=== PATIENT | female | born 1950 | race Caucasian/White ===

== ENCOUNTER 2017-01-17 08:15 | Emergency (ER) | payer MEDICARE ==
[~2017-01-17] VITALS: Ht 165.1 cm; Wt 81.6 kg
[~2017-01-17 08:15] MED LIST: AMLODIPINE-VALS1 TA1 PO; AUGMENTIN1 TA2 OR; CEFTIN500 MG PO; EXFORGE 5 MG-161 TAB PO; FENOFIBRATE160 MG PO; LEVOTHYROXINE0.1 M1 PO; MAXZIDE 25 MG-31 TA1 PO; NAPROXEN EC500 MG PO; POTASSIUM CHLO10 ME1 PO; Zithromax500 MG PO
--- OUTSIDE RECORDS SUMMARY | 2017-01-17 08:50 | External Medical Summary Rpt | CCD ---
Author Author [employer] Organization [employer] Address Unknown Phone Unavailable Purpose Continuity of Care Document - through 2016
--- OUTSIDE RECORDS SUMMARY | 2017-01-17 08:50 | External Medical Summary Rpt | CCD ---
Author Author , AMANDA PATEL Address Unknown Phone [email or web address] Immunization Name Date Rout CVX Reac Dose Comm Prov Is Faci e tion ent ider Refu lity Give sed n Tdap 05-1 115 999 Hist H149 No H149 , 1-20 oric Adso 07 al rbed Info rmat ion - Sour ce Unsp ecif ied Hep 12-0 43 999 Hist H149 No H149 B, 5-19 oric adul 97 al t Info rmat ion - Sour ce Unsp ecif ied Hep 07-0 42 999 Hist H149 No H149 B, 1-19 oric adol 97 al Info High rmat Ris ion - Sour ce Unsp ecif ied Hep 06-0 43 999 Hist H149 No H149 B, 2-19 oric adul 97 al t Info rmat ion - Sour ce Unsp ecif ied
--- OUTSIDE RECORDS SUMMARY | 2017-01-17 08:50 | External Medical Summary Rpt ---
Author Author AMANDA Raygoza, [employer] Organization [employer] Address Unknown Phone Unavailable
--- OUTSIDE RECORDS SUMMARY | 2017-01-17 08:50 | External Medical Summary Rpt | CCD ---
Author Author AMANDA Address Unknown Phone [email or web address] Purpose Continuity of Care Document - through 2016
--- OUTSIDE RECORDS SUMMARY | 2017-01-17 08:50 | External Medical Summary Rpt | CCD ---
Author Author , AMANDA PATEL Address Unknown Phone [email or web address] Immunization Name Date Rout CVX Reac Dose [...]
--- OUTSIDE RECORDS SUMMARY | 2017-01-17 08:50 | External Medical Summary Rpt | CCD ---
Author Author AMANDA Address Unknown Phone [email or web address] Purpose Continuity of Care Document - through 2016
--- NOTE | 2017-01-17 08:54 | Emergency Room Report ---
History of Present Illness Time Seen by [id number] Presenting Problem in Triage Pt arrived:Walked Presenting Problem:SOA X 3 MONTHS; 1+PPD SMOKER, WHO HAD NOTICED IT BECOMING INCREASINGLY HARDER TO GET HER BREATH. NON-PRODUCTIVE COUGH PER HER REPORT. NO RECENT EXPOSURE TO FLU OR PNEUMONIA. 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 N Clinical Suspician of Infection? N Mental Status: 1 - Regular (Normal Baseline) Sepsis Risk:Low Sepsis Risk Have you (or family members/close friends) recently traveled outside the [place]? N If Yes, where/when: Have you had exposure to infectious disease within the past month? TB? Other? Specify: Source patient, RN notes reviewed, family, RN/MD Exam Limitations no limitations Comment Patient has been "short of breath since summer, since September". Patient has any fever, denies any cough, any hemoptysis, any weight loss, any night sweats, any recent exposure to sick contacts, any recent travel. Patient is in the midst of changing doctors, stated that she has not had a chance to see her new physician. ALLERGIES Coded Allergies: No Known Allergies (01/17/17) Home Medications Reported Medications Levothyroxine Sodium (Levothyroxine 0.1MG) 0.1 MG PO 0700 #90 TAB Fenofibrate (Fenofibrate 160MG (GEQ: Lofibra)) 160 MG PO DAILY #90 TAB TRIAMTERENE/HYDROCHLOROTHIAZID (Maxzide 37.5 MG-25 MG Tablet) 1 TAB PO DAILY AMLODIPINE/VALSARTAN (Exforge 5-160 MG Tablet) 1 TAB PO DAILY Potassium Chloride 10 MEQ PO DAILY #90 History Medical History General CAD? No Angina: No [place]: No Hypertension? Yes Hyperlipidemia? Yes CHF? No DVT? No PE? No COPD? No Asthma? No Anemia? No GERD? No Gastric ulcers? No GI Bleed? No Hernia? No Thyroid Problems? No Hypothyroidism? Yes CVA? No Seizures? No Diabetes? No Insulin Dependent: No Insulin Pump: No Home FSBS? No Renal Insuffiency? No End Stage Renal Disease? No UTI? No Stones? No BPH? No GB Disease: Yes Nephritic Syndrome? No Asplenia? No Hepatitis? No Sickle Cell Disease? No Arthritis? Yes Migraines? No Cataracts? No Glaucoma? No MRSA? No HIV? No TB? No Anxiety? No Depression? No Cancer? 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 Family History Family Hx Diabetes No CAD Yes Hypertension Yes Hyperlipidemia Yes Cancer Yes TB No Social History Smoking Hx Smoker: Current Every Day Smoker Tobacco: Yes Type Cigarettes Packs/day 1 1/2 - 2 Packs Alcohol Alcohol: No Review of Systems All Other Systems Reviewed and Negative Respiratory shortness of breath Physical Exam Vital Signs Vital Signs Date Time Temp Pulse Resp B/P Pulse O2 O2 Flow FiO2 Ox Delivery Rate 01/17 1055 71 20 137/82 90 01/17 0952 75 24 140/87 90 01/17 0820 98.2 88 24 165/84 93 General Appearance normal appearance, WD/WN, no apparent distress Respiratory Status Yes: trachea midline, chest symmetrical, non tender chest. No: respiratory distress. Lung Sounds bilateral: normal breath sounds, lungs clear. 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 No Comment 1020-patient appears medically stable, improving, in no acute distress. Advised of results obtained, she will schedule follow-up appointment with ObGyn within the next 2 days. Results/Orders Laboratory Tests 01/17/17 0910: Lactic Acid 0.7 01/17/17 0910: TSH 10.63 H, Free T4 Index 9.1, Thyroxine (T4) 11.8, T3 Uptake 31 01/17/17 0910: Creatine Kinase 109, CK-MB (CK-2) Rel Index 2.8, CK and CKMB Interp 3.0, Troponin I < 0.02 01/17/17 0910: B-Natriuretic Peptide 14 01/17/17 0910: Sodium 136, Potassium 4.1, Chloride 97 L, Carbon Dioxide 34 H, BUN 13, Creatinine 0.7, Estimated Creat Clear 105, Estimated GFR (MDRD) 84, Glucose 94, Calcium 9.4, Total Bilirubin 0.3, AST 18, ALT 18, Alkaline Phosphatase 73, Total Protein 7.6, Albumin 4.0, Globulin 3.6 H, Albumin/Globulin Ratio 1.1, D-Dimer 182, WBC 7.9, RBC 5.34, Hgb 14.8, Hct 47.7 H, MCV 89.2, RDW 14.0, Plt Count 431 H, MPV 7.5, Gran % 70.7, Gran # 5.6, Lymphocytes % 19.2, Monocytes % 5.8, Eosinophils % 3.7, Basophils % 0.7, Lymphocytes # 1.5, Monocytes # 0.5, Eosinophils # 0.3, Basophils # 0.1, PUBS MCHC 31.1 L, MCH 27.8 Orders Procedure Date/time Status D-DIMER 01/17 1007 Complete BRAIN NATRIURETIC PEPTIDE 01/17 1007 Complete THYROID PANEL 2 (WITH TSH) 01/17 0852 Complete CARDIAC ENZYMES 01/17 0827 Complete CULTURE, BLOOD 01/17 0826 Active LACTIC ACID 01/17 0826 Complete CBC WITH AUTO DIFF 01/17 0826 Complete CHEM 12 PROFILE 01/17 0826 Complete RT REQUEST DUONEB 01/17 0824 Active XRAY/CT/US XRAY/CT/US XRAY chest XR interpretation by reviewed by me, discussed w/radiologist Xray Results abnormal Comment right lung nodule Departure Departure Time of Disposition 1023 Disposition DC Home or Self Care(routine) Clinical Impression Primary Impression: Hypothyroidism Qualifiers: Hypothyroidism type: unspecified Qualified Code: E03.9 - Hypothyroidism, unspecified Secondary Impressions: Acute bronchitis Qualifiers: Bronchitis organism: unspecified organism Qualified Code: J20.9 - Acute bronchitis, unspecified Nodule of right lung Condition STABLE Referrals Gurjit Hicks MD Patient Instructions DI for Acute Bronchitis, DI for Hypothyroidism Additional Instructions A 14 mm nodule was noticed on your chest xray (copy of this test given to you), please follow-up with Dr. Hicks as soon as possible in order to arrange for additional outpatient workup (CT scan of your chest with IV contrast). Attached is a prescription for a new dose of levothyroxine (125mcg) to replace the old dose (100mcg), as well as a position for antibiotics. Discharge Counseling Counseled pt/family regarding diagnosis, test results, medications/RX, home care, follow up needs Comment A 14 mm nodule was noticed on your chest xray, please follow-up with Dr. Hicks as soon as possible in order to arrange for additional outpatient workup (CT scan of your chest with IV contrast). Attached is a prescription for a new dose of levothyroxine (125mcg) to replace the old dose (100mcg), as well as a position for antibiotics. Prescriptions Current Visit Scripts Levothyroxine Sodium (Levothyroxine 0.125MG) 0.125 MG PO DAILY #30 TAB Ref 1 Amoxicillin/Potassium Clav (Augmentin 875-125 Tablet) 1 EACH PO BID #20 TAB ED Critical Care Critical Care No at 1000 Amoxicillin/Potassium Clav (Augmentin 875-125 Tablet) 1 EACH PO BID #20 TAB ED Critical Care Critical Care No
[2017-01-17 09:18] LABS: LYMPH # 1.5 K/mm3 (0.7-4.5); LYMPH % 19.2 % (10-50.0)
--- NOTE | 2017-01-17 09:21 | RADIOLOGY REPORT PS360 ---
CHEST(2 VIEWS-NOT PORTABLE) HISTORY: Shortness of air SOA ORDERING PHYSICIAN: Luís Rhodes MD PATIENT AGE: 66 years COMPARISON: 07/26/2014 FINDINGS: The cardiomediastinal silhouette and pulmonary vascularity are within normal limits. There is hyperinflation with coarsening of the bronchovascular markings consistent with obstructive chronic bronchitis. No lobar consolidation or collapse evident. Nodular opacity is noted over the T11 vertebral body inferiorly measuring approximate 14 mm and may correspond to the nodular density noted in the right lower lung zone on the frontal view. There is a calcified granuloma in the left lower lobe. No acute bony anomalies. IMPRESSION: 1. Obstructive chronic bronchitis. 2. 14 mm nodular opacity right lower lobe. This is not readily apparent on the previous exam and may be better evaluated with CT.
[2017-01-17 09:25] LABS: HEMOGLOBIN 14.8 g/dL (12.2-16.2)
[2017-01-17 09:41] LABS: FREE THYROXIN INDEX 9.1 ug/dl (5.93-13.13)
[2017-01-17] MEDS ORDERED: LEVOTHYROXIN0.125 MG PO (10:46)
[2017-01-17] MEDS ORDERED: AUGMENTIN 875-1 EACH PO (10:47)
[2017-01-17 10:55] VITALS: BP 137/82
== END 2017-01-17 10:55 | disposition home or self-care (01) ==
LOC: ER 08:15
PROVIDERS: Emergency Medicine
DX: E03.9 Hypothyroidism, unspecified (principal); J20.9 Acute bronchitis, unspecified; R91.1 Solitary pulmonary nodule; I10 Essential (primary) hypertension; E78.5 Hyperlipidemia, unspecified; F17.210 Nicotine dependence, cigarettes, uncomplicated; Z79.899 Other long term (current) drug therapy; Z85.3 Personal history of malignant neoplasm of breast

== ENCOUNTER → 2017-01-20 | Outpatient (CLI) | payer MEDICARE ==
[~2017-01-20] MED LIST changes: +AUGMENTIN 875-1 EACH PO; +LEVOTHYROXIN0.125 MG PO
[2017-01-20 13:12] LABS: BUN 13 mg/dL (7-18); GFR (ESTIMATED) 100 ML/MIN (59-)
--- NOTE | 2017-01-20 18:08 | RADIOLOGY REPORT PS360 ---
CT CHEST W/ CONTRAST INDICATION: Follow-up lung nodule, solitary pulmonary nodule, abnormal chest x-ray LUNG NODULE ORDERING PHYSICIAN: Maude Flores MD PATIENT AGE: 67 years COMPARISON: 03/02/2010 TECHNIQUE: Axial images obtained following intravenous ministration of 75 mL's of Isovue-370. FINDINGS: No mediastinal or hilar mass or adenopathy. Pulmonary arteries are somewhat prominent suggesting pulmonary arterial hypertension. There are centrilobular emphysematous changes with hyperinflation and attenuation of peripheral pulmonary vessels consistent with obstructive chronic bronchitis. There is mild bronchial thickening. There is a faint nodular opacity in the right upper lobe 3 mm unchanged. No suspicious pulmonary nodules are evident. The nodule seen on chest x-ray is felt to be due to overlapping summation density from the pulmonary vessels. There is a calcified granuloma in the left lower lobe which may account for the abnormality noted on the lateral view. No effusions or infiltrates. No acute bony anomalies. No evidence of aortic aneurysm or dissection. Upper abdominal images show diffuse hepatic steatosis with some increased density in the right hepatic lobe posteriorly and laterally which may be due to some sparing of fatty infiltration. An enhancing lesion such as that occurring with hepatocellular carcinoma is an additional consideration. Would recommend 3 month follow-up of the liver without and with contrast with delayed imaging with liver protocol to confirm stability or resolution. IMPRESSION: 1. Obstructive chronic bronchitis with centrilobular emphysematous change with old granulomatous disease. 2. No suspicious pulmonary nodules evident. 3. Mild prominence of the pulmonary arteries suggesting pulmonary atrial hypertension. 4. Hepatic steatosis with focal area of enhancement/hyperdensity in the right hepatic lobe which may be due to sparing of fatty infiltration versus an enhancing lesion. Consider 3 month follow-up without and with contrast to confirm stability
== END ==
LOC: RAD 12:37
PROVIDERS: Nurse Practitioner Family
DX: R91.1 Solitary pulmonary nodule (principal)
CPT/HCPCS: Q9967